=== PATIENT | male | born 1965 | race Caucasian/White ===

== ENCOUNTER → 2019-04-12 09:35 | Emergency (ER) | payer OTHER, SELFPAY ==
[2019-04-12 09:58] VITALS: BP 120/83; PULSE 90; RESP 16; TEMP 37.5; O2SAT 99
[2019-04-12 10:12] LABS: Hematocrit 45.9 % (42.0-52.0); Mean Corpuscular HGB Conc 34.9 g/dl (32-36); Mean Corpuscular Hemoglobin 29.7 pg (26-34); Mean Corpuscular Volume 85.2 fl (80-100); Platelet Count Result 219 k/mm3 (150-375); Red Blood Count 5.39 M/mm3 (4.6-6.20); Red Cell Distribution Width 12.4 % (11.5-14.5); White Blood Count 10.3 K/mm3 (4.5-10.0)
[2019-04-12 10:22] LABS: Add Urine Microscopic? YES; Appearance Urine Cloudy (Clear); Bacteria Urine Trace /hpf; Bilirubin Urine Negative (Negative); Blood Urine Negative (Negative); Color Urine Yellow (Yellow); Glucose Urine UA Negative (Negative); Ketones Urine Negative (Negative); Leukocyte Esterase Ur 2+ LEU/UL (Negative); Mucus Urine Rare /lpf; Nitrate Urine Negative (Negative); Protein Urine 1+ mg/dL (Negative); Specific Grav Ur 1.023 (1.001-1.035); Squamous Epithelial Cell Urine Rare /hpf (Few); WBC Urine 21-30 /hpf
[2019-04-12 10:28] LABS: Blood Urea Nitrogen 3 mg/dL (9-20); Carbon Dioxide 24 mmol/L (22-30); Chloride 94 mmol/L (98-107); Estimated CRCL calculation 118 ml/min; Estimated Glomerular Filt Rate > 60; Glucose 101 mg/dL (75-110); Potassium 3.2 mmol/L (3.4-5.0); Sodium 127 mmol/L (137-145)
[2019-04-12 10:45] LABS: Atypical Lymphocytes Present; Eosinophils Percent Manual 1 % (0-4); Lymphocytes Absolute Manual 2.78 K/mm3 (1.1-4.5); Monocytes Absolute Manual 1.54 K/mm3 (0.1-0.90); Monocytes Percent Manual 15 % (3-9); Neutrophils Percent Manual 57 % (46-73); Platelet Estimate Adequate (Adequate); Total Cells Counted 100
--- NOTE | 2019-04-12 11:16 | ED.MALEGU ---
HPI - Male Genitourinary General Chief complaint: Urogenital-Male Stated complaint: burning with urination Time Seen by Provider: 04/12/19 11:14 Source: patient and RN notes reviewed Mode of arrival: ambulatory Limitations: no limitations History of Present Illness HPI Narrative: A 54 y/o male presents to the ED with worsening, burning, dysuria for the past 4 days. He reports associated urinary retention. He notes that he had similar symptoms when he had a bladder infection. He also notes that he is sexually active. He denies any penile discharge, hematuria, fevers, chills, N/V/D, or ABD pain. MD Complaint: dysuria Onset (ago): day(s) (4) Duration: progressively worsening Quality: burning Associated symptoms: Reports urinary retention Related Data Sexually active: Yes Allergies Allergy/AdvReac Type Severity Reaction Status Date / Time codeine Allergy Unknown Unknown Verified 03/15/19 13:45 meperidine Allergy Unknown Anaphylactic Verified 03/15/19 13:45 Shock Penicillins Allergy Unknown Unknown Verified 03/15/19 13:45 Review of Systems Review of Systems: All systems reviewed & are unremarkable except as noted in HPI and below Constitutional: Constitutional: Denies chills and Denies fever(s) Gastrointestinal: Gastrointestinal: Denies abdominal pain, Denies diarrhea, Denies nausea and Denies vomiting Genitourinary: Genitourinary: Denies hematuria, Reports dysuria, Denies penile discharge and Reports other (urinary retention) PMFSH Past Medical History Medical History Asthma Bladder infection COPD (chronic obstructive pulmonary disease) GERD (gastroesophageal reflux disease) Surgical History Surgical History No history of previous surgery Family History Family History (System 03/15/19 @ 13:45 by Ginger Benitez) Father Asthma Family history of chronic obstructive pulmonary disease Family history of emphysema Other Family history of autism Social History Social History (Updated 04/12/19 @ 11:50 by Reggie Patton) Smoking status: Current every day smoker Smoking end date: 02/07/09 Exam Narrative: Exam Narrative: General appearance: Well-developed, well-nourished Skin: Normal color Head: Normocephalic, nontraumatic Eyes: Clear conjunctiva ENT: Oropharynx normal, ears normal, nose normal Neck: Supple, nontender Chest and respiratory: Airway patent, no respiratory distress, no accessory muscle use Heart: Regular rate/rhythm Abdomen: Soft, mild suprapubic tenderness, no organomegaly, quiet bowel sounds Vascular: Normal peripheral pulses, normal capillary refill. Musculoskeletal: Normal range of motion, nontender back Neurologic: Alert and oriented ?3, COURTESY BOOTH CASHIER is normal as tested, no gross motor deficit Course Course Emergency Course: Improving Consultations Consultation #1: Discussed case with Dr. Spangler (Hospitalist). Accepts the pt. Date: 04/12/19 Time: 12:40 Vital Signs Vital signs: Vital Signs Temperature 37.5 C 04/12/19 09:58 Pulse Rate 90 04/12/19 09:58 Respiratory Rate 16 04/12/19 09:58 Blood Pressure 120/83 04/12/19 09:58 Pulse Oximetry 99 04/12/19 09:58 Temperature 37.5 C 04/12/19 09:58 Pulse Rate 90 04/12/19 09:58 Respiratory Rate 16 04/12/19 09:58 Blood Pressure 120/83 04/12/19 09:58 Pulse Oximetry 99 04/12/19 09:58 MDM - Male Genitourinary MDM Narrative Medical decision making narrative: Urinary tract infection, prostatitis, urinary retention are my differential diagnosis. UA ordered, bladder scan. Patient probably will need Rand catheter placement prior to discharge
[2019-04-12 13:25] VITALS: BP 138/92; PULSE 79; RESP 18; O2SAT 99
== END | disposition left against medical advice (07) ==
PROVIDERS: Emergency Medicine; Emergency Provider Emergency Medicine; PCP Emergency Medicine
DX: R33.9 Retention of urine, unspecified (principal); E87.1 Hypo-osmolality and hyponatremia; E87.6 Hypokalemia; N39.0 Urinary tract infection, site not specified; J44.9 Chronic obstructive pulmonary disease, unspecified; K21.9 Gastro-esophageal reflux disease without esophagitis; Z87.440 Personal history of urinary (tract) infections; F17.200 Nicotine dependence, unspecified, uncomplicated
CPT/HCPCS: 36415; 80048; 81001; 85025; 87077; 87086; 87088; 87186; 99283

== ENCOUNTER 2019-04-16 20:33 | Emergency (ER) | payer OTHER, SELFPAY ==
[2019-04-16 20:53] VITALS: BP 138/99; PULSE 99; RESP 22; TEMP 36.5; O2SAT 99
--- NOTE | 2019-04-16 21:17 | ED.MALEGU ---
HPI - Male Genitourinary General Chief complaint: Urogenital-Male Stated complaint: can not urinate Time Seen by Provider: 04/16/19 21:16 Source: patient and RN notes reviewed Mode of arrival: other Limitations: no limitations History of Present Illness HPI Narrative: Pt is a 54 y/o male who presents to the ED with c/o dysuria that began earlier this afternoon. He states that he went to this PCP to get his chronic Rand catheter taken out at 2:30 PM today. Pt also reports lower abdominal pain and low urine output, but denies nausea, vomiting, fever, and chills. Complaint: dysuria Onset (ago): hour(s) Duration: constant Associated symptoms: Reports other (lower abdominal pain, low urine output) Related Data Allergies Allergy/AdvReac Type Severity Reaction Status Date / Time codeine Allergy Unknown Unknown Verified 03/15/19 13:45 meperidine Allergy Unknown Anaphylactic Verified 03/15/19 13:45 Shock Penicillins Allergy Unknown Unknown Verified 03/15/19 13:45 Review of Systems Review of Systems: All systems reviewed & are unremarkable except as noted in HPI and below Constitutional: Constitutional: Denies chills and Denies fever(s) Gastrointestinal: Gastrointestinal: Reports abdominal pain (lower), Denies nausea and Denies vomiting Genitourinary: Genitourinary: Reports oliguria and Reports dysuria PMFSH Past Medical History Medical History (Updated 04/16/19 @ 22:14 by Kwesi Rivas MD) Asthma Bladder infection COPD (chronic obstructive pulmonary disease) Rand catheter in place GERD (gastroesophageal reflux disease) Surgical History Surgical History No history of previous surgery Family History Family History Father Asthma Family history of chronic obstructive pulmonary disease Family history of emphysema Other Family history of autism Social History Social History (Updated 04/12/19 @ 11:50 by Reggie Patton) Smoking status: Current every day smoker Smoking end date: 02/07/09 Gender identity (if verbalized by the patient): Male Exam Narrative: Exam Narrative: General appearance: Well-developed, well-nourished Skin: Normal color Head: Normocephalic, nontraumatic Eyes: Clear conjunctiva ENT: Oropharynx normal, ears normal, nose normal Neck: Supple, nontender Chest and respiratory: Airway patent, no respiratory distress, no accessory muscle use Heart: Regular rate/rhythm Abdomen: Soft, tender suprapubic, no organomegaly, quiet bowel sounds Vascular: Normal peripheral pulses, normal capillary refill. Musculoskeletal: Normal range of motion, nontender back Neurologic: Alert and oriented ?3, RAG WILLOW OPERATOR is normal as tested, no gross motor deficit Course Course Emergency Course: Improved Vital Signs Vital signs: Vital Signs Temperature 36.5 C 04/16/19 20:53 Pulse Rate 99 04/16/19 20:53 Respiratory Rate 22 H 04/16/19 20:53 Blood Pressure 138/99 H 04/16/19 20:53 Pulse Oximetry 99 04/16/19 20:53 Temperature 36.5 C 04/16/19 20:53 Pulse Rate 99 04/16/19 20:53 Respiratory Rate 22 H 04/16/19 20:53 Blood Pressure 138/99 H 04/16/19 20:53 Pulse Oximetry 99 04/16/19 20:53 MDM - Male Genitourinary MDM Narrative Medical decision making narrative: Recurrent urinary retention is my concern. UA ordered, Rand catheter placement ordered. Further plan to follow Lab Data Labs: Lab Results 04/16/19 Range/Units 21:41 Urine Color Straw (Yellow) Urine Appearance Clear (Clear) Urine pH 6.0 (5.0-9.0) Ur Specific [place] 1.006 (1.001-1.035) Urine Protein Negative (Negative) m
[2019-04-16 21:49] LABS: Add Urine Microscopic? NO; Appearance Urine Clear (Clear); Bilirubin Urine Negative (Negative); Blood Urine Negative (Negative); Color Urine Straw (Yellow); Glucose Urine UA Negative (Negative); Ketones Urine Negative (Negative); Leukocyte Esterase Ur Negative LEU/UL (Negative); Nitrate Urine Negative (Negative); Protein Urine Negative (Negative); Specific Grav Ur 1.006 (1.001-1.035); Urobilinogen Urine Negative mg/dL (<2.0)
== END 2019-04-16 22:52 | disposition home or self-care (01) ==
PROVIDERS: Emergency Provider Emergency Medicine; PCP Emergency Medicine
DX: R33.9 Retention of urine, unspecified (principal); J44.9 Chronic obstructive pulmonary disease, unspecified; K21.9 Gastro-esophageal reflux disease without esophagitis; Z87.891 Personal history of nicotine dependence
CPT/HCPCS: 51702; 81003; 99283

== ENCOUNTER 2019-04-19 10:15 | Emergency (ER) | payer OTHER, SELFPAY ==
[2019-04-19 10:50] VITALS: BP 127/94; PULSE 111; RESP 16; TEMP 37.4; O2SAT 97
--- NOTE | 2019-04-19 12:07 | PC.NURSE ---
discontinued sierra catheter, sent urine for UA, pt up to bathroom to urinate on his own, reports urinating small amount. Dr elmore
--- NOTE | 2019-04-19 12:14 | ED.MALEGU ---
HPI - Male Genitourinary General Chief complaint: Urogenital-Male Stated complaint: wants sierra removed/raw Time Seen by Provider: 04/19/19 10:45 Source: patient Mode of arrival: ambulatory Limitations: no limitations History of Present Illness HPI Narrative: Patient presents with chief complaint of wanting to have Sierra catheter removed. Patient had Sierra catheter placed due to urinary retention on 04-16-19. Patient has had this happen multiple times of the last few months. Patient has an appointment with a urologist on the . Patient is requesting a order for the ability of supplies to be able to straight cath himself. Patient has been following up with his primary care until he can see a urologist. Patient states that he is on ciprofloxacin for UTI treatment. Patient denies fever, chills, nausea, vomiting, diarrhea. Patient reports irritation to his urethral area. Related Data Allergies Allergy/AdvReac Type Severity Reaction Status Date / Time codeine Allergy Unknown Unknown Verified 03/15/19 13:45 meperidine Allergy Unknown Anaphylactic Verified 03/15/19 13:45 Shock Penicillins Allergy Unknown Unknown Verified 03/15/19 13:45 Review of Systems Review of Systems: Narrative: CONSTITUTIONAL: Denies fever, chills, or sweats. EYES: Denies visual changes, redness, or discharge. ENT: Denies rhinorrhea, congestion, sore throat, or otalgia. CARDIOVASCULAR: Denies chest pain, palpitations, or edema. RESPIRATORY: Denies cough or dyspnea. GASTROINTESTINAL: Denies abdominal pain, nausea, vomiting, or diarrhea. GENITOURINARY: Reports urethral irritation denies dysuria or hematuria. SKIN: Denies rash or itching. MUSCULOSKELETAL: Denies back pain, joint pain, or myalgia. NEUROLOGIC: Denies headache, numbness, dizziness, or weakness. PSYCHIATRIC: Denies anxiety or depression. [facility] Past Medical History Medical History (Updated 04/19/19 @ 12:18 by Asuncion Negrete PA-C) Asthma Bladder infection COPD (chronic obstructive pulmonary disease) Sierra catheter in place GERD (gastroesophageal reflux disease) Surgical History Surgical History No history of previous surgery Social History Social History (Updated 04/12/19 @ 11:50 by Reggie Patton) Smoking status: Current every day smoker Smoking end date: 02/07/09 Gender identity (if verbalized by the patient): Male Exam Narrative: Exam Narrative: GENERAL: Well-appearing, well-nourished, and in no acute distress. HEAD: Normocephalic, atraumatic. EYES: PERRLA and EOMI. NECK: Supple. No adenopathy or masses. No carotid bruits or JVD CHEST: Clear to auscultation. No respiratory distress. No wheezes rales or rhonchi HEART: Regular rate and rhythm. ABDOMEN: Soft, nontender, nondistended, normal active bowel sounds. : Erythema noted to urethral opening. Swelling not appreciated. Sierra catheter in place. No fluid noted to the area. Small amount of clear thin drainage surrounding. EXTREMITIES: Normal range of motion. SKIN: Warm, dry, no rash. NEURO: No focal deficits. Alert and oriented x3. PSYCH: Normal mood and affect. Course Vital Signs Vital signs: Vital Signs Temperature 99.4 F 04/19/19 10:50 Pulse Rate 111 H 04/19/19 10:50 Respiratory Rate 16 04/19/19 10:50 Blood Pressure 127/94 H 04/19/19 10:50 Pulse Oximetry 97 04/19/19 10:50 Temperature 99.4 F 04/19/19 10:50 Pulse Rate 111 H 04/19/19 10:50 Respiratory Rate 16 04/19/19 10:50 Blood Pressure 127/94 H 04/19/19 10:50 Pulse Oximetry 97 04/19/19 10:50 MDM - Male Genitourinary MDM Narrative Medical decision making narrative: Patient is refusing urine analysis. After having indwelling catheter removed patient states that he went to the restroom and was able to urinate from his penis. Patient states that he is currently taking ciprofloxacin for urinary tract infection. Patient instructed to call urologist today to for sooner evaluation
[2019-04-19 12:23] LABS: Add Urine Microscopic? YES; Appearance Urine Clear (Clear); Bacteria Urine Trace /hpf; Bilirubin Urine Negative (Negative); Blood Urine 1+ (Negative); Color Urine Yellow (Yellow); Glucose Urine UA Negative (Negative); Ketones Urine Negative (Negative); Leukocyte Esterase Ur Trace LEU/UL (Negative); Mucus Urine Heavy /lpf; Nitrate Urine Negative (Negative); Protein Urine 1+ mg/dL (Negative); RBC Urine 21-50 /hpf (0-2); Specific Grav Ur 1.023 (1.001-1.035); WBC Urine 0-3 /hpf
== END 2019-04-19 12:24 | disposition home or self-care (01) ==
PROVIDERS: Physician Assistant; Emergency Provider Emergency Medicine; PCP Emergency Medicine
DX: Z46.6 Encounter for fitting and adjustment of urinary device (principal); N39.0 Urinary tract infection, site not specified; J44.9 Chronic obstructive pulmonary disease, unspecified; K21.9 Gastro-esophageal reflux disease without esophagitis
CPT/HCPCS: 81001; 99283

== ENCOUNTER 2021-07-06 08:59 | Emergency (ER) | payer OTHER, SELFPAY ==
[2021-07-06 09:02] VITALS: BP 104/65; PULSE 86; RESP 18; TEMP 36.2; O2SAT 98
[2021-07-06 10:19] VITALS: BP 126/85; PULSE 80; RESP 18; O2SAT 97
[2021-07-06 10:38] LABS: Appearance Urine Clear (Clear); Bilirubin Urine Negative (Negative); Blood Urine Trace-lysed (Negative); Color Urine Yellow (Yellow); Glucose Urine UA Negative (Negative); Ketones Urine Negative (Negative); Leukocyte Esterase Ur Trace LEU/UL (Negative); Nitrate Urine Positive (Negative); Protein Urine Negative (Negative); Specific Grav Ur 1.015 (1.001-1.035); Urobilinogen Urine 0.2 mg/dL (<2.0); pH Urine 7.5 (5.0-9.0)
--- NOTE | 2021-07-06 10:48 | ED.MALEGU ---
HPI - Male Genitourinary General Chief complaint: Urogenital-Male Stated complaint: urinary retention Time Seen by Provider: 07/06/21 09:15 History of Present Illness HPI Narrative: 56-year-old male with multiple prior episodes of urinary retention presents here stating that he is having urinary retention again, he has not been able to urinate since 6 PM last night, denies any fevers or chills, does state that he does have some discomfort when he did urinate, and that he has some suprapubic pressure. No other concerning symptoms such as back or flank pain, focal numbness or weakness or saddle anesthesia. Related Data Allergies Allergy/AdvReac Type Severity Reaction Status Date / Time codeine Allergy Unknown Unknown Verified 03/15/19 13:45 meperidine Allergy Unknown Anaphylactic Verified 03/15/19 13:45 Shock Penicillins Allergy Unknown Unknown Verified 03/15/19 13:45 Review of Systems Review of Systems: CONST: No fever. HEENT: No sore throat C/V: No chest pain RESP: No cough GI: Suprapubic pressure : dysuria. BACK: No pain SKIN: No rash. NEURO: [No headache or focal numbness or weakness] PSYCH: [No depression] PMFSH Past Medical History Medical History Asthma Bladder infection COPD (chronic obstructive pulmonary disease) Rand catheter in place GERD (gastroesophageal reflux disease) Surgical History Surgical History No history of previous surgery Family History Family History Father Asthma Family history of chronic obstructive pulmonary disease Family history of emphysema Other Family history of autism Social History Social History Smoking status: Current every day smoker Smoking end date: 02/07/09 Gender identity (if verbalized by the patient): Male Exam Narrative: EXAMINATION OF ORGAN SYSTEMS/BODY AREAS: Constitutional: Vital signs per nursing GENERAL:[No acute distress, non-toxic appearing.] HEAD: Normal with no signs of head trauma. EYES: EOMI, conjunctiva normal LUNGS: Nonlabored breathing. HEART: [Regular rate and rhythm] ABD: [Soft], mildly distended and [tender to palpation] suprapubic BACK: No midline or CVA tenderness EXT: Normal range of motion SKIN: [No rashes or lesions.] NEURO: [Alert and oriented x 3. No gross focal sensory or strength deficits.] PSYCH: Normal affect Course Vital Signs Vital signs: Vital Signs Temperature 97.1 F L 07/06/21 09:02 Pulse Rate 86 07/06/21 09:02 Respiratory Rate 18 07/06/21 09:02 Blood Pressure 104/65 07/06/21 09:02 Pulse Oximetry 98 07/06/21 09:02 Oxygen Delivery Room Air 07/06/21 09:02 Temperature 97.1 F L 07/06/21 09:02 Pulse Rate 73 07/06/21 11:17 Respiratory Rate 18 07/06/21 11:17 Blood Pressure 137/75 07/06/21 11:17 Pulse Oximetry 98 07/06/21 11:17 Oxygen Delivery Room Air 07/06/21 09:02 MDM - Male Genitourinary MDM Narrative Medical decision making narrative: 56-year-old male presenting with acute retention, vital signs stable, exam does show some suprapubic discomfort, Rand placed at patient's request which does drain large amount of urine, patient immediately feels better afterwards. Of low concern for cauda equina without any back pain, saddle anesthesia or focal numbness or weakness, and the fact that he has had symptoms like this in the past, I suspect likely UTI, UA is positive and he is started on ciprofloxacin. He is given follow-up to urologist. Stable for discharge home at this time. Differential Diagnosis Differential diagnosis: Likely urinary tract infection, prostatitis and acute retention of urine Lab Data Labs: Lab Results 07/06/21 Range/Units 10:26 Urine Color Yellow (Yellow) Urine Appearance Clear (Clear) Urine pH 7.5 (5.0-9.0) Ur Specif
[2021-07-06 10:54] LABS: RBC Urine 0-2 /hpf (0-2); WBC Urine 0-3 /hpf
[2021-07-06 11:02] LABS: Add Urine Microscopic? YES
[2021-07-06 11:17] VITALS: BP 137/75; PULSE 73; RESP 18; O2SAT 98
== END 2021-07-06 11:13 | disposition home or self-care (01) ==
PROVIDERS: Emergency Provider Emergency Medicine
DX: N39.0 Urinary tract infection, site not specified (principal); R33.9 Retention of urine, unspecified; J44.9 Chronic obstructive pulmonary disease, unspecified; K21.9 Gastro-esophageal reflux disease without esophagitis; Z87.891 Personal history of nicotine dependence
CPT/HCPCS: 81001; 99283

== ENCOUNTER 2022-01-30 19:10 | Emergency (ER) | payer OTHER, SELFPAY ==
--- NOTE | ~2022-01-30 | XR_ITS ---
EXAM: XR hand RT min 3V DATE: 01/30/2022 20:49 HISTORY: fall, injury, pain. FELL DOWN THE STAIRS. . COMPARISON: None available. FINDINGS: Decreased mineralization. Oblique fracture of the right fifth metacarpal shaft width anter ior angulation. No lytic or blastic lesion. Joint spaces are maintained. No erosion or periosteal giovanni nge. Soft tissues within normal limits. IMPRESSION: Angulated right fifth metacarpal shaft fracture. Reviewed, dictated and finalized at location K. NT SERVICE CONSULTANT
[2022-01-30 19:54] VITALS: BP 110/55; PULSE 82; RESP 16; TEMP 37.1; O2SAT 98
[2022-01-30 23:25] VITALS: BP 140/76; PULSE 73; RESP 14; O2SAT 94
--- NOTE | 2022-01-31 00:07 | PC.NURSE ---
Pt and family seen leaving ED. This RN asked pt if he was still planning to be seen, pt states Nope .
== END 2022-01-31 00:07 | disposition left against medical advice (07) ==
LOC: ANHED 01-31 00:14
PROVIDERS: Emergency Provider Emergency Medicine
DX: S62.356A Nondisplaced fracture of shaft of fifth metacarpal bone, right hand, initial encounter for closed fracture (principal); S61.401A Unspecified open wound of right hand, initial encounter; W19.XXXA Unspecified fall, initial encounter
CPT/HCPCS: 73130; 99199

== ENCOUNTER 2024-01-05 11:49 | Emergency (ER) | payer OTHER, SELFPAY ==
[2024-01-05 12:07] VITALS: BP 155/83; PULSE 90; RESP 18; TEMP 36.3; O2SAT 98
--- NOTE | 2024-01-05 12:17 | ED.GENADULT ---
HPI - General Adult General Chief complaint: Urogenital-Male Stated complaint: unable to urinate Time Seen by Provider: 01/05/24 12:10 Source: patient and family Mode of arrival: ambulatory Limitations: no limitations History of Present Illness HPI narrative: 58 years old white male came to the ED with his family member complaining of unable to urinate since yesterday noon. Suprapubic tenderness. Patient report having similar symptoms 1 year ago required Rand catheter placement. History psych disorder Related Data Allergies Allergy/AdvReac Type Severity Reaction Status Date / Time codeine Allergy Unknown Unknown Verified 01/05/24 11:50 meperidine Allergy Unknown Anaphylactic Verified 01/05/24 11:50 Shock Penicillins Allergy Unknown Unknown Verified 01/05/24 11:50 Review of Systems Review of Systems: All systems reviewed & are unremarkable except as noted in HPI and below PMFSH Past Medical History Medical History Asthma Bladder infection COPD (chronic obstructive pulmonary disease) Rand catheter in place GERD (gastroesophageal reflux disease) Surgical History Surgical History No history of previous surgery Family History Family History Father Asthma Family history of chronic obstructive pulmonary disease Family history of emphysema Other Family history of autism Social History Social History Smoking status: Current every day smoker Smoking end date: 02/07/09 Gender identity (if verbalized by the patient): Male Exam Narrative: General appearance: Well-developed, well-nourished Skin: Normal color Chest and respiratory: Airway patent, no respiratory distress, no accessory muscle use Heart: Regular rate/rhythm Abdomen: Soft, slight supra pubic tenderness, no guarding or rebound, quite bowel sounds Neurologic: Alert and oriented ?3, CUT OFF MAN is normal as tested, no gross motor deficit Course Vital Signs Vital signs: Vital Signs Temperature 36.3 C L 01/05/24 12:07 Pulse Rate 90 01/05/24 12:07 Respiratory Rate 18 01/05/24 12:07 Blood Pressure 155/83 H 01/05/24 12:07 Pulse Oximetry 98 01/05/24 12:07 Oxygen Delivery Room Air 01/05/24 12:07 Temperature 36.3 C L 01/05/24 12:07 Pulse Rate 90 01/05/24 12:07 Respiratory Rate 18 01/05/24 12:07 Blood Pressure 155/83 H 01/05/24 12:07 Pulse Oximetry 98 01/05/24 12:07 Oxygen Delivery Room Air 01/05/24 12:07 Medical Decision Making MDM Narrative Medical decision making narrative: Patient presents with urinary retention Vital signs are stable Physical examination showing suprapubic tenderness Rand catheter placed yielding 900 cc urine, Differential diagnosis include benign prostatic enlargement, urinary tract infection, psych medication side effect. Urinalysis showed no acute abnormality Patient was advised to call urologist for follow-up to remove the Rand catheter in 4-5 days The pt was discharged to home.the pt,s condition upon discharge was fair,education was provided to the pt in reference to the final impression,discharge study results,treatment,prognosis and need for follow up . Vital Signs Vital Signs: Vital Signs Temperature 36.3 C L 01/05/24 12:07 Pulse Rate 90 01/05/24 12:07 Respiratory Rate 18 01/05/24 12:07 Blood Pressure 155/83 H 01/05/24 12:07 Pulse Oximetry 98 01/05/24 12:07 Oxygen Delivery Room Air 01/05/24 12:07 Temperature 36.3 C L 01/05/24 12:07 Pulse Rate 90 01/05/24 12:07 Respiratory Rate 18 01/05/24 12:07 Blood Pressure 155/83 H 01/05/24 12:07 Pulse Oximetry 98 01/05/24 12:07 Oxygen Delivery Room Air 01/05/24 12:07 Lab Data Labs: Lab Results 01/05/24 Range/Units 12:46 Urine Color Yellow (Yellow) Urine Appearance Clear (Clear) Urine pH 6.0 (5.0-9.0) Ur Specific [place] 1.020 (1.001-1.035) Urine Protein Negative (Negative) mg/dL Urine Glucose (UA) Negative (Negative) mg/dL Urine Ketones Negative (Negative) mg/dL Ur Blood (Man) Negative (Negative) Urine Nitrate Negative (Negative) Urine Bilirubin Negative (Negative) Urine Urobilinogen 1.0 (<2.0) mg/dL Leukocyte Esterase Rfl Negative (Negative) VINI/UL Critical Care Time Critical Care Time Critical Care Time: No Discharge Plan Discharge Clinical Impression: Acute retention of urine Patient Disposition: Home, Self-Care Condition: Stable Instructions: Urinary Retention in Men (ED), Rand Catheter Placement and Care (ED) Additional Instructions: Return if symptoms are worsening , call urologist for appointment, take Tylenol as as needed for aches and pain, continue home medications. Remove Rand catheter in 4-5 days Prescriptions: No Action ciprofloxacin HCl 500 mg tablet 500 mg PO Q12H Qty: 20 0RF potassium chloride 20 mEq tablet extended release 20 meq PO BID Qty: 10 0RF ciprofloxacin HCl 500 mg tablet 500 mg PO Q12H Qty: 20 0RF ciprofloxacin HCl 500 mg tablet 500 mg PO Q12H Qty: 14 0RF Follow-up/Referrals: Chris Ash MD [Physician] - 01/09/24 PHYSICIAN,FORENSIC SERGEANT [Non-Staff] -
[2024-01-05 12:53] LABS: Add Urine Microscopic? NO; Appearance Urine Clear (Clear); Bilirubin Urine Negative (Negative); Blood Urine Negative (Negative); Color Urine Yellow (Yellow); Glucose Urine UA Negative (Negative); Ketones Urine Negative (Negative); Leukocyte Esterase Ur Negative LEU/UL (Negative); Nitrate Urine Negative (Negative); Protein Urine Negative (Negative)
[2024-01-05 14:15] VITALS: BP 145/82; PULSE 90; RESP 16; O2SAT 98
--- NOTE | 2024-01-05 14:21 | PC.NURSE ---
Pt. provided with a leg bag. This RN offered to apply leg bag, but pt. refused. Pt. states he has had a sierra placed before and is familiar with using the big bag for night and a leg bag for during the day. Pt. states he is going home and going to bed so he wants to leave with the leg bag attached.
== END 2024-01-05 14:30 | disposition home or self-care (01) ==
PROVIDERS: Emergency Provider Emergency Medicine; PCP Internal Medicine
DX: R33.9 Retention of urine, unspecified (principal); J44.9 Chronic obstructive pulmonary disease, unspecified; K21.9 Gastro-esophageal reflux disease without esophagitis; Z87.891 Personal history of nicotine dependence
CPT/HCPCS: 51702; 81003; 99283

== ENCOUNTER 2024-01-27 16:04 | Outpatient (CLI) | payer OTHER, SELFPAY ==
--- NOTE | ~2024-01-27 | CT_ITS ---
EXAMINATION:CT lung screening DATE: 01/27/2024 16:24 INDICATION: Personal history of nicotine dependence. Current smoker with 30 pack year history. TECHNIQUE: Computed tomography (CT) of the chest was performed without intravenous contrast. Automate d exposure control and iterative reconstruction technique were employed. The dose-length product (DLP ) was 126.86 mGy-cm. COMPARISON: CT abdomen and pelvis 03/23/2017 FINDINGS: There is severe emphysema. There is mild atelectasis in left upper lobe. There is a 6 mm no dule in right lower lobe. There is a 2 mm nodule in left lower lobe. No pleural effusion. The heart s ize is normal. There are coronary artery calcifications. No pericardial effusion. There is mild bilat eral gynecomastia. There is mild thoracic spondylosis. IMPRESSION: 1. Lung-RADS category 3: Probably benign. Further evaluation is recommended with noncontrast low-dose chest CT in 6 months. Reviewed, dictated and finalized at location A. RATURE TEACHER IMPRESSION: 1. Lung-RADS category 3: Probably benign. Further evaluation is recommended wit h noncontrast low-dose chest CT in 6 months.
== END 2024-01-27 16:05 | disposition home or self-care (01) ==
PROVIDERS: PCP Internal Medicine; Visit Provider Internal Medicine
DX: Z12.2 Encounter for screening for malignant neoplasm of respiratory organs (principal); Z87.891 Personal history of nicotine dependence
CPT/HCPCS: 71271